=== PATIENT | male | born 1975 | race African-American/Black ===

== ENCOUNTER 2022-08-12 12:39 | Emergency (ER) | payer SELFPAY ==
[~2022-08-12] VITALS: Ht 193 cm; Wt 109.1 kg
[2022-08-12] MEDS ORDERED: PERTUSS(ACELL),DIPH,TET VAC/PF 0.5 ML SYRINGE IM. ONE (14:00)
[2022-08-12] MEDS ORDERED: NEOMYCIN/BACITRACIN/POLYMYXIN B OINTMENT PACKET TP ONE (14:00)
[2022-08-12] MEDS ORDERED: IBUPROFEN 600 MG TABLET PO ONE (14:00)
[2022-08-12] MEDS ORDERED: CEPH-558 PO (14:22)
[2022-08-12] MEDS ORDERED: IBUP-1492 PO (14:23)
[2022-08-12 14:47] VITALS: BP 125/67
== END 2022-08-12 14:57 | disposition home or self-care (01) ==
LOC: EMS 12:45
DX: S61.212A Laceration without foreign body of right middle finger without damage to nail, initial encounter (principal); W26.8XXA Contact with other sharp object(s), not elsewhere classified, initial encounter; Y93.89 Activity, other specified; Y92.89 Other specified places as the place of occurrence of the external cause; Y99.8 Other external cause status
CPT/HCPCS: 90471; 90715; 99283